=== PATIENT | female | born 1970 | race Asian ===

== ENCOUNTER 2025-04-05 14:34 | Outpatient (CLI) | payer OTHER | END 2025-04-05 14:35 | disposition home or self-care (01) | LOC: CSHMAMMO 14:34 | DX: Z12.31 Encounter for screening mammogram for malignant neoplasm of breast (principal); N64.89 Other specified disorders of breast | CPT/HCPCS: 77063; 77067 ==

== ENCOUNTER 2025-04-13 09:22 | Outpatient (CLI) | payer OTHER | END 2025-04-13 09:23 | disposition home or self-care (01) | LOC: CSHMAMMO 09:22 | DX: N64.89 Other specified disorders of breast (principal) | CPT/HCPCS: G0279 ==